=== PATIENT | male | born 1975 | race Two or more races ===

== ENCOUNTER 2017-01-22 11:40 | Emergency (ER) | payer OTHER ==
[2017-01-22 11:55] VITALS: TEMP 98.2; O2SAT 95
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
[2017-01-22 14:41] VITALS: BP 112/78; PULSE 77; RESP 16
== END 2017-01-22 14:41 | disposition home or self-care (01) ==
DX: S16.1XXA Strain of muscle, fascia and tendon at neck level, initial encounter (principal); V49.88XA Car occupant (driver) (passenger) injured in other specified transport accidents, initial encounter; Y92.410 Unspecified street and highway as the place of occurrence of the external cause